=== PATIENT | male | born 1965 | race African-American/Black ===

== ENCOUNTER 2019-01-23 20:34 | Inpatient (IN) ==
[2019-01-23] MEDS ORDERED: NS 1,000 ML IV ONE ×2 (21:25→23:34)
--- NOTE | 2019-01-23 21:48 | Diag Imaging Result Doc PS360 ---
EXAM: CHEST-1 VIEW HISTORY: fever yest TECHNIQUE: Chest single view COMPARISON: None. FINDINGS: The lungs are well expanded. The heart is mildly prominent. Sternal wires are present. The vessels are not distended. There are no infiltrates. No effusion identified. IMPRESSION: No pneumonia Electronically signed by Jonathan Montgomery 01/23/2019 9:46 PM
[2019-01-23 21:51] LABS: BASO# 0.04 X1000 (0.0-0.2); BASO% 0.4 % (0.0-0.8); EOS# 0.16 X1000 (0.0-0.7); EOS% 1.4 % (0.0-10.0); HEMATOCRIT 50.6 % (42.0-52.0); IMM GRAN# 0.03 X1000 (0.0-0.04); IMM GRAN% 0.3 % (0.0-0.5); LYMPH# 2.71 X1000 (1.2-3.4); LYMPH% 23.8 % (20.5-51.1); MCH 30.4 PG (27-31); MCHC 33.6 g/dL (33-37); MCV 90.5 FL (81-99); MONO# 0.67 X1000 (0.11-0.59); MONO% 5.9 % (1.7-9.3); MPV 10.6 FL (7.4-10.4); NEUT# 7.78 X1000 (1.4-6.5); NEUT% 68.2 % (42.2-75.2); PLT 491 X1000 (130-400); RBC 5.59 XMIL (4.7-6.1); WBC 11.39 X1000 (4.8-10.8)
[2019-01-23 22:23] LABS: ALBUMIN 4.1 g/dL (3.5-5.0); CALCIUM 9.7 mg/dL (8.8-10.2); CREATININE 1.9 mg/dL (0.7-1.2); POTASSIUM 3.1 mmol/L (3.5-5.1); TOTAL BILIRUBIN 0.87 mg/dL (0.20-1.00); TOTAL PROTEIN 8.4 g/dL (6.3-8.3)
[2019-01-24] MEDS ORDERED: NS 1,000 ML IV ONE (01:11)
--- NOTE | 2019-01-24 03:20 | PROVIDER DOCUMENTATION ---
This chart was entered by Luna Reddy Scribe, acting as scribe for Yohan Stiles MD. HPI-General Adult - General Chief Complaint: Near Syncope Stated Complaint: near syncope Time Seen by Provider: 01/23/19 20:37 Source: patient Allergies/Adverse Reactions: Patient Allergies Allergy/AdvReac Type Severity Reaction Status Date / Time alprazolam [From Xanax] Allergy Unknown Verified 01/24/19 00:13 midazolam [From Versed] Allergy Unknown Verified 01/24/19 00:13 Home Medications: Home Medication List Medication Instructions Recorded Confirmed Last Taken Type Acetaminophen 650 mg PO Q4HR PRN 01/24/19 01/24/19 Unknown History Carbidopa/Levodopa [Carbidopa-Levo 1 cap PO 4XDAY 01/24/19 01/24/19 Unknown History 25-100 mg Odt] Carbidopa/Levodopa [Carbidopa-Levo 12.5 mg PO WSUPPER 01/24/19 01/24/19 Unknown History 25-100 mg Odt] Carbidopa/Levodopa [Carbidopa-Levo 50 - 200 mg PO QAM 01/24/19 01/24/19 Unknown History ER 50-200 Tab] Carbidopa/Levodopa 25 mg PO QHS 01/24/19 01/24/19 Unknown History [Carbidopa-Levodopa 25-100 Tab] Docusate Sodium 100 mg PO DAILY 01/24/19 01/24/19 Unknown History Glucos Sul 2Kcl/MSM/Chond/C/Mn 1 cap PO DAILY 01/24/19 01/24/19 Unknown History [Glucosamine Chondroitin Cap] Levetiracetam 500 mg PO DAILY 01/24/19 01/24/19 Unknown History Omeprazole 40 mg PO DAILY 01/24/19 01/24/19 Unknown History Polyethylene Glycol 3350 [Miralax] 17 gm PO DAILY 01/24/19 01/24/19 Unknown History Pramipexole [Mirapex] 1 mg PO QAM 01/24/19 01/24/19 Unknown History Pramipexole [Mirapex] 1.5 mg PO QHS 01/24/19 01/24/19 Unknown History Psyllium Husk/Calcium Carb 1 cap PO DAILY 01/24/19 01/24/19 Unknown History [Metamucil Plus Calcium Capsule] Rasagiline Mesylate 0.5 mg PO DAILY 01/24/19 01/24/19 Unknown History Scopolamine [Transderm-Scop] 1 patch TD Q3DAYS 01/24/19 01/24/19 Unknown History Tamsulosin HCl 0.4 mg PO BID 01/24/19 01/24/19 Unknown History - History of Present Illness -Gen Adult Nature of Presenting Problems: 53 yom c/o pt had 104 fever yesterday, went to work today and started feeling lightheaded, weakness, cramping all over. pt sts he has been drinking plenty of fluids at work. pt works at [employer], and it is very hot in building. pt pcp is Dr. calle. pt has hx of high cholesterol, htn, gerd, gout, arthritis and double bypass and stent. pt denies vision probs, earn, nose throat probs, and nvd. pt is a nonsmoker. Review of Systems - Adult - REVIEW OF SYSTEMS - ADULT Constitutional: reports: see HPI, fever (89 yest but better in er), other (weakness). denies: chills Eyes: reports: no symptoms reported. denies: decreased vision, blurred vision, double vision Ears, Nose, Mouth & Throat: reports: no symptoms reported. denies: ear pain, nose pain, throat pain Cardiovascular: reports: no symptoms reported Respiratory: reports: no symptoms reported Gastrointestinal: reports: no symptoms reported. denies: diarrhea, nausea, vomiting Genitourinary: reports: no symptoms reported Musculoskeletal: reports: see HPI, other (cramping all over). denies: bone pain, back pain, muscle aches Integumentary: reports: no symptoms reported Neurological: reports: see HPI, other (lightheaded). denies: headache/migraines, seizure, slurred speech Psychiatric: reports: no symptoms reported Endocrine: reports: no symptoms reported Hematologic/Lymphatic: reports: no symptoms reported Allergic/Immunologic: reports: no symptoms reported All Other Systems: Reviewed and Negative Past History - Adult - PAST MEDICAL HISTORY-ADULT Review of Records: reports: Old Records Reviewed, Nursing Assessment Review, Medications Reviewed, Social history reviewed & non-contributory. Major Childhood Illnesses: reports: denies history Cardiovascular: reports: [place] Respiratory: reports: denies history Gastrointestinal: reports: GERD Obstetrical/Gynecological: reports: denies history Genitourinary: reports: denies history Musculoskeletal: reports: arthritis, other (gout) Neurological: reports: denies history Endocrine/Immune: reports: denies history Other Conditions: reports: denies history - PRIOR SURGERIES/PROCEDURES Surgical/Procedure History: reports: CABG, cardiac stent, tonsillectomy, other - IMMUNIZATION STATUS Childhood Immunizations: See Nurse Assessment Flu Vaccine: See Nurse Assessment - FAMILY HISTORY Family History: reviewed, not pertinent - SOCIAL HISTORY Smoking: other (former smoker) Substance Use: alcohol Alcohol Use Frequency: 3-4 times a week Physical Exam-General - PHYSICAL EXAM-ADULT Initial Vital Signs Reviewed: Yes - CONSTITUTIONAL General Appearance: appears well, alert, no apparent distress - EYES Eyes: PERRL/EOMI, pink conjunctivae - HEAD, EARS, NOSE, MOUTH & THROAT HENMT: normocephalic/atraumatic, moist mucous membranes - NECK Neck: full range of motion, supple, normal inspection - RESPIRATORY Respiratory: chest non-tender, lungs clear, normal breath sounds - CARDIOVASCULAR Cardiovascular: normal peripheral pulses, regular rate, rhythm - GASTROINTESTINAL (ABDOMEN) Abdominal Exam: normal bowel sounds, non tender, soft - LYMPHATIC Lymphatic: no adenopathy - MUSCULOSKELETAL Back Exam: normal inspection, no CVA tenderness, no vertebral tenderness Extremity: normal range of motion, non-tender, normal inspection Peripheral Pulses: radial (R): 2+, radial (L): 2+ - SKIN Integumentary: normal color, normal turgor, warm/dry - NEUROLOGIC Neurologic: grossly normal, no motor/sensory deficits, other (cn II-XII tested) - PSYCHIATRIC Psych/Mental Status: normal mood/affect, normal thought content, normal thought process, oriented x 3 Progress - PLAN OF CARE/RESULTS Progress/Plan/Lab Results: Vital Signs - 8 hr 01/23/19 20:47 01/23/19 20:48 01/23/19 20:50 Pulse Rate 86 88 84 Respiratory Rate 18 19 17 Blood Pressure O2 Sat by Pulse Oximetry 01/23/19 21:00 01/23/19 21:04 Pulse Rate 87 90 Respiratory Rate 22 22 Blood Pressure 78/64 O2 Sat by Pulse Oximetry 99 Laboratory Results - last 24 hr 01/23/19 20:54 POC Glucose 131 H Orders Category Date Time Status CHEST-1 VIEW [RAD] Stat Exams 01/23/19 21:25 Ordered CBC WITH DIFF [HEME] Stat Lab 01/23/19 21:24 Uncollected COMPREHENSIVE METABOLIC PANEL [CHEM] Stat Lab 01/23/19 21:25 Uncollected 0.9% Sodium Chloride Inj [Ns] 1,000 ml Med 01/23/19 21:25 Active IV 999 mls/hr Result Diagrams: 01/23/19 20:53 01/23/19 20:53 - REASSESSMENT Reassessment #1 Time Reassessed: 01:10 Status: other (pt is still hypotensive and hasn't urinated since being in er.) Reassessment #2 Time Reassessed: 03:14 (says fels better, but BP is still 97/57. Denies new meds.) Status: improving - EKG 1 Time of EKG reading by physician:: 20:59 EKG Read and Signed by:: oYhan Stiles EKG Interpretation (*Must complete 3 of following elements*): Abnormal Rate: 84 (bilat enlargement ) Rhythm: SR w/occ PVC [place]: normal QRS: LVH (w/reploarizing abnormality), other (prolonged qt) [place] Interval: normal - XRAY 1 XRAY Study: Chest (EXAM: CHEST-1 VIEW HISTORY: fever yest TECHNIQUE: Chest single view COMPARISON: None. FINDINGS: The lungs are well expanded. The heart is mildly prominent. Sternal wires are present. The vessels are not distended. There are no infiltrates. No effusion identified. IMPRESSION: No pneumonia Electronically signed by Jonathan Montgomery 01/23/2019 9:46 PM) Impression: Normal Comparison with other Films: no prior study - CONSULTS/PCP/HOSPITALIST Notification #1 *Consult/PCP/Hospitalist*: Eliazar Time Discussed: 03:18 Consult Disposition: Will see in ED, Admit Departure - Departure Date of Disposition Decision: 01/24/19 Time of Disposition Decision: 03:18 DIAGNOSIS: Hypotension Qualifiers: Hypotension type: unspecified hypotension type Qualified Code(s): I95.9 - Hypotension, unspecified Disposition: ADMITTED INPATIENT 09 Certified Medical Emergency: Emergent Condition: Good Referrals and Follow-Ups: Jack Calle MD [Primary Care Provider] - - Critical Care Note This patient required my direct & personal management of CC.: Yes Total Time (mins): 40 Critical Care Statement: This patient required my direct personal management to treat or rule out processes, the absence of which, could potentiallly result in sudden, clinically significant life or limb threatening deterioration. Attestation - Physician/ VITA Attestation Patient care was provided by Advanced Practice Provider:: No The physician spent face to face time with patient:: Yes Advanced Practice Provider documentation review:: Supervising physician onsite and consulted in the evaluation and care of this patient. The physician did have a face to face encounter with the patient. This chart was documented by the indicated scribe, (Luna Reddy Scribe) and accurately reflects the services I performed and decisions made by me, Yohan Stiles MD, as attested by the provider's signature.
[2019-01-24 04:56] LABS: CALCIUM 7.9 mg/dL (8.8-10.2); CREATININE 1.6 mg/dL (0.7-1.2); MAGNESIUM 1.5 mg/dL (1.5-2.7); POTASSIUM 4.1 mmol/L (3.5-5.1)
[2019-01-24] MEDS: NS 1,000 ML IV SCH ×2 (05:00→17:20)
[2019-01-24 05:32] LABS: URINE BACTERIA 2+ /HFP; URINE CAST NONE SEEN /LPF; URINE EPITHELIAL CELLS <10 /HPF (<10); URINE RBC <10 /HPF (<10); URINE SOURCE CLEAN CATCH; URINE WBC <10 /HPF (<10); URINE YEAST NONE SEEN /HPF
[2019-01-24 05:33] LABS: CLARITY CLEAR (CLEAR); COLOR YELLOW; URINE CRYSTAL NONE SEEN /HPF
[2019-01-24 05:34] LABS: BILIRUBIN URINE SMALL (NEGATIVE); BLOOD URINE TRACE (NEGATIVE); GLUCOSE URINE NEGATIVE (NEGATIVE); KETONE URINE TRACE mg/dL (NEGATIVE); LEUKOCYTES URINE NEGATIVE (NEGATIVE); NITRITE URINE NEGATIVE (NEGATIVE); PH URINE 5.5; PROTEIN URINE 30 mg/dL (NEGATIVE)
--- NOTE | 2019-01-24 07:40 | EKG Report ---
Test Performed on : 01/23/2019 8:56:44 PM Test Reason : Syncope,Hypotension Blood Pressure : / mmHG Vent. Rate : 084 BPM Atrial Rate : 084 BPM P-R Int : 192 ms QRS Dur : 108 ms QT Int : 446 ms P-R-T Axes : 067 088 141 degrees QTc Int : 527 ms Sinus rhythm. with occasional premature ventricular complexes. Biatrial enlargement Left ventricular hypertrophy with repolarization abnormality Prolonged QT Abnormal ECG When compared with ECG of 28-JAN-2016 08:29, No significant change was found Unconfirmed Result
[2019-01-24 14:59] LABS: URINE SOURCE VOIDED
[2019-01-24 15:13] LABS: BILIRUBIN URINE NEGATIVE (NEGATIVE); BLOOD URINE NEGATIVE (NEGATIVE); COLOR YELLOW; GLUCOSE URINE NEGATIVE (NEGATIVE); KETONE URINE NEGATIVE (NEGATIVE); LEUKOCYTES URINE NEGATIVE (NEGATIVE); NITRITE URINE NEGATIVE (NEGATIVE); PH URINE 5.5; PROTEIN URINE TRACE mg/dL (NEGATIVE); SP GRAVITY URINE 1.025; TURBIDITY URINE CLEAR (CLEAR); UROBILINOGEN URINE NORMAL (NORMAL)
[2019-01-24 15:14] LABS: UR EPITHELIAL CELLS <10 /HPF (<10); URINE BACTERIA NEGATIVE /HPF; URINE RBC <10 /HPF (<10); URINE WBC <10 /HPF (<10)
[2019-01-24 15:39] LABS: UR AMPHETAMINES QUAL NONE DETECTED (NONE DETECT); UR BARBITUATES QUAL NONE DETECTED (NONE DETECT); UR BENZODIAZEPIN QUAL NONE DETECTED (NONE DETECT); UR CANNABINOIDS QUAL NONE DETECTED (NONE DETECT); UR COCAINE QUAL NONE DETECTED (NONE DETECT); UR METHADONE QUAL NONE DETECTED (NONE DETECT); UR OPIATES QUAL NONE DETECTED (NONE DETECT); UR OXYCODONE QUAL NONE DETECTED (NONE DETECT); UR PCP QUAL NONE DETECTED (NONE DETECT)
--- NOTE | 2019-01-24 19:21 | ECHO REPORT ---
ORDER DATE: 01/24/2019 INTERPRETING PHYSICIAN: Dr. Magdaleno Nicole. CLINICAL INDICATIONS: A 53-year-old male with syncope, fever, weakness, hypertension, and post bypass. M-MODE MEASUREMENTS: Left ventricle end diastole: 5.6 cm. Left ventricle end systole: 4.6 cm. Posterior wall: 1.2 cm. Interventricular septum: 1.3 cm. Left atrium: 4.8 cm. Aortic diameter: 3.6 cm. SUMMARY OF 2-DIMENSIONAL IMAGING: The study is difficult. 1. The global left ventricular function appears to be mild to moderately impaired. There is severe impairment of the inferior wall as well as the inferior aspect of the interventricular septum. There is also impairment of the apical anteroseptal segment. Global ejection fraction appears to be in the order of 40% to 45%. There is moderate enlargement of the left ventricular chamber. The study is consistent with coronary heart disease. 2. The aortic valve opens normally. Color flow mapping unremarkable. 3. The pulmonic valve looks normal. Color flow mapping unremarkable. 4. The tricuspid valve shows trivial degree of regurgitation. 5. Pulmonary pressure is grossly estimated to be within normal range. 6. The pulsed wave Doppler of mitral inflow shows normal E/A ratio. 7. The tissue Doppler of septal and lateral mitral annulus averages 6 1/2 cm. Diastolic function is probably normal. 8. The left atrium is probably mildly enlarged. 9. There is no pericardial effusion, no mass, and no thrombus. CONCLUSIONS: In summary, this study shows 1. Mild to moderately impaired systolic function with left ventricular ejection fraction of 40% to 45% with wall motion abnormality involving the inferior wall, inferior interventricular septum, and the apical septal segment. 2. No definite diastolic dysfunction. 3. Very mild degree of mitral and tricuspid regurgitation. 4. Unremarkable aortic valve. 5. No definite indication of pulmonary hypertension. 6. No mass and no thrombus or pericardial effusion. cc: MD Bello Cuellar MD
[2019-01-25] MEDS: NS 1,000 ML IV SCH (01:20)
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
[2019-01-25 07:51] LABS: BASO# 0.03 X1000 (0.0-0.2); BASO% 0.4 % (0.0-0.8); EOS# 0.28 X1000 (0.0-0.7); EOS% 3.7 % (0.0-10.0); HEMATOCRIT 39.1 % (42.0-52.0); LYMPH# 2.73 X1000 (1.2-3.4); MCH 30.7 PG (27-31); MCHC 33.2 g/dL (33-37); MCV 92.2 FL (81-99); MONO# 0.62 X1000 (0.11-0.59); MONO% 8.2 % (1.7-9.3); MPV 9.8 FL (7.4-10.4); NEUT# 3.92 X1000 (1.4-6.5); NEUT% 51.7 % (42.2-75.2); PLT 283 X1000 (130-400); RBC 4.24 XMIL (4.7-6.1); RDW 12.8 % (11.5-14.5); WBC 7.58 X1000 (4.8-10.8)
[2019-01-25 08:01] LABS: AGAP 9; BUN 20 mg/dL (8-22); CALCIUM 7.8 mg/dL (8.8-10.2); CHLORIDE 112 mmol/L (98-107); COSMO 286; CREATININE 0.8 mg/dL (0.7-1.2); ESTIMATED GFR > 60; GLUCOSE 97 mg/dL (70-104); MAGNESIUM 1.4 mg/dL (1.5-2.7); POTASSIUM 3.4 mmol/L (3.5-5.1); SODIUM 142 mmol/L (136-145); TCO2 21 mmol/L (25-35)
[2019-01-25] MEDS ORDERED: MAGNESIUM SULFATE 2 GM/S.W.I. 2 GM/50 ML IVPB IV ONE (08:16)
[2019-01-25] MEDS: POTASSIUM CHLORIDE 60 MEQ in NS 500 ML IV SCH ×2 (12:12→23:08)
[2019-01-25] MEDS: COZAAR PO SCH (17:09)
[2019-01-25] MEDS: TYLENOL PO PRN (19:26)
[2019-01-25] MEDS: COREG PO SCH (21:07)
[2019-01-25] MEDS ORDERED: APRESOLINE IV PRN (22:11)
--- NOTE | 2019-01-25 22:41 | PROGRESS NOTE ---
DATE: 01/25/2019 SUBJECTIVE: A 57-year-old male admitted to the hospital with leg cramps, orthostatic hypotension after working. Interval history was reviewed. The patient admitted yesterday. H and P was reviewed. REVIEW OF SYSTEMS: Patient is feeling a little better. No nausea or vomiting. No muscle cramps. PAST MEDICAL HISTORY: Reviewed. PAST SURGICAL HISTORY: Reviewed. MEDICATIONS: Reviewed. ALLERGIES: Not known. OBJECTIVE: Vitals: Blood pressure is slightly increasing. Blood pressure is 210/107. HEENT Exam: Within normal limits. Chest: Clear. Sternotomy scar present. Abdomen: Belly is soft, nontender. Neurological: No obvious neurological deficits. INVESTIGATIONS: CBC: White cell count 7.5, hematocrit 39, platelets 283,000. Sodium 142, potassium 3.4, chloride 112, BUN 20, creatinine 0.8, magnesium is low. Calcium is 7.8. Echocardiography was done 01/24/2019. [id number] systolic dysfunction. LV 40% to 45% and no definitive valvular heart disease seen. ASSESSMENT AND PLAN: 1. Dehydration is better. Decreased IV fluids. 2. The patient is no longer orthostatic. 3. Azotemia, improving. 4. Hypokalemia, hypomagnesemia. Replace potassium and magnesium. 5. Hypertension. Restart on Coreg and Cozaar. 6. Ischemic cardiomyopathy. LV function is 40% to 45%, bypass surgery 1998. 7. History of lichen planus stable. 8. Gout stable. He is also taking allopurinol. 9. Benign prostatic hypertrophy, stable. 10. Hyperlipidemia on atorvastatin 40 mg daily. We will slowly restart his medications. Patient was seen in my office last visit on 02/07/2018. He is due for annual exam. LEVEL OF DOCUMENTATION: 35 minutes. cc: Bello Romero MD
--- NOTE | 2019-01-26 08:29 | PROGRESS NOTE ---
DATE: 01/26/2019 SUBJECTIVE: The patient's leg cramps are better. However, blood pressure is running very high. He has known history of coronary artery disease. Echocardiogram showed LV systolic dysfunction. He was replaced with potassium and magnesium yesterday. OBJECTIVE: Vital Signs: Temp is 98 degrees, pulse 77, blood pressure is 186/104. HEENT: Within normal limits. Chest: Clear. Heart: S1, S2 regular. Abdomen: Belly is soft, nontender. INVESTIGATIONS: None reported. ASSESSMENT AND PLAN: 1. Heat exhaustion, improving. 2. Hypokalemia and hypomagnesemia, improving. 3. Ischemic heart disease, stable. 4. Hypertension and heart disease with ischemic cardiomyopathy. Started on losartan, Coreg, and hydralazine as needed. We will follow up on the blood pressure, and if he is stable, will discharge this afternoon or in the morning. LEVEL OF DOCUMENTATION: 25 minutes. cc: Bello Romero MD
[2019-01-26] MEDS: COZAAR PO SCH (08:48)
[2019-01-26] MEDS: COREG PO SCH ×2 (08:48→21:38)
[2019-01-26] MEDS: TYLENOL PO PRN (22:01)
[2019-01-27 07:49] VITALS: BP 166/96
[2019-01-27] MEDS: COREG PO SCH (10:22)
[2019-01-27] MEDS: COZAAR PO SCH (10:22)
== END 2019-01-27 11:27 | disposition home or self-care (01) | DRG 923 ==
LOC: ED 20:34 → SUATTDRO 01-24 06:31 → 3N 01-24 06:31
PROVIDERS: ADMIT Internal Medicine; ATTEND Internal Medicine
CPT/HCPCS: 51798; 71010; 71045; 80048; 80053; 80101; 80301; 80307; 80320; 80324; 80345; 80346; 80353; 80358; 80361; 80365; 81001; 82055; 82550; 82948; 83735; 83992; 84484; 85025; 87088; 93005; 93306; 94760; 94761; 96360; 96361; 99285; 99291; A9270; G0431; G0434; G0479; G0480; G6040; J3475; J3480; J7030; J7040; XXXXX